=== PATIENT | female | born 1990 | race Caucasian/White ===

== ENCOUNTER 2019-07-29 07:15 | Day surgery (SDC) | payer BC, SELFPAY ==
[2019-07-28 09:05] VITALS: BMI 21.6
[2019-07-28 09:10] LABS: OR HCG Qualitative Urine Negative (Negative)
--- NOTE | 2019-07-28 09:34 | ANES.PREANES ---
Pre-Anesthetic Assessment Pre-Anesthetic Assessment: Height/Weight: Height 1.73 m Weight 64.41 kg Proposed Procedure: Operation Date: 07/29/19 08:00 Proposed Procedures p Loop Electrosurgical Excision Procedure(Not Applicable) - Alfred Sosa MD Social: Social History: No alcohol and No tobacco Airway: Submandibular: WNL Cervical ROM: WNL MP: 2 Dentition: Full Pulmonary: Pulmonary: None reported CV/HEM: CV/HEM: None reported : : None reported Hepatic: Hepatic: None reported GI: GI: None reported Metabolic: Metabolic: None reported Musc/skel: Musc/skel: None reported Neuropsych: Neuropsych: None reported Anesthetic Plan: ASA status: I Anesthesia: MAC Risk of > 500 ml blood loss (7ml/kg in children): No PFSH Anesthesia PFSH: Social History (Updated 07/28/19 @ 09:08 by Fern Nava RN) Smoking and tobacco status: never smoked Data Anesthesia Labs: Other Labs: Laboratory Results - last 48 hr 07/28/19 09:07 Urine HCG, Qual Negative Cardiac Studies: No Data to Display
[2019-07-29 07:29] VITALS: BP 127/65; PULSE 63; RESP 18; TEMP 36.7; O2SAT 100
--- NOTE | 2019-07-29 07:59 | PM.HPUD ---
H&P update H&P Update: DATE OF SURGERY/PROCEDURE: 07/29/19 DATE H&P PERFORMED: 07/28/19 H&P UPDATE INFORMATION: H&P completed within last 30 days and No changes to prior documentation PLANNED PROCEDURE: Operation Date: 07/29/19 09:05 Proposed Procedures p Loop Electrosurgical Excision Procedure(Not Applicable) - Alfred Sosa MD Full H&P Perinent History: Social History: Social History Smoking and tobacco status: never smoked Alcohol intake: current Alcohol intake frequency: holidays/special occasions only
[2019-07-29] MEDS: sodium chloride 0.9% 1,000 ML 30 ML IV (08:19)
[2019-07-29] MEDS: ketorolac 30 mg/mL INJ IVP (08:20)
--- NOTE | 2019-07-29 11:00 | PM.OP ---
Operative Report Post-Operative Note: Date of procedure: 07/29/19 Preop Diagnosis: Cervical intraepithelial neoplasia 2 Post-op diagnosis: same Procedure Done: Loop electrosurgical excisional procedure of the cervix with colposcopy Specimens removed/disposition: LEEP specimen of the cervix Surgeon: Alfred Sosa Anesthesia: MAC and other (Paracervical block) Estimated blood loss (mL): 20 IV fluids (mL): 700 Complications: None Findings: Acetowhite changes at the 12 o'clock position of the ectocervix and thin band of acetowhite changes along the transformation zone. Condition: stable Disposition: other (Home) Operative Report: Brief History: Patient is a 29-year-old white female 1, para 1-0-0-1 with an LMP of 07/07/2019 who uses the NuvaRing for control. She had had an abnormal Pap smear on 05/15/2019 showing low-grade TAMEKA with positive high risk HPV. She had a colposcopy performed on 06/03/2019 which showed TRISTIAN-2. Further treatment by LEEP was recommended. Since she did not tolerate the colposcopy well due to anxiety issues, decision was made to perform the LEEP as an outpatient procedure under anesthesia. She is presenting for this at this time. Procedure: A nonconductive speculum was placed in the vagina and acetic acid applied to the cervix. Colposcopy was performed with acetowhite changes noted at approximately the 12 o'clock position of the ectocervix. She also had a thin band of acetowhite changes along the entire transformation zone. Transformation zone was completely seen. Lugol's was applied. Paracervical block was performed with a total of 12 mL ml of 2% lidocaine with epinephrine used. Using a 2 cm loop, the entire transformation zone and nonstaining portions of the cervix were excised in a single pass. The base of the excised area and outer edges of the cervix were cauterized with ball tip cautery. Monsel solution was applied. The patient tolerated the procedure well. Sponge and needle counts were correct. DISPOSITION: Discharged home. FOLLOW-UP APPOINTMENT: Follow-up appointment scheduled for 08/18/2019 in my office. DISCHARGE MEDICATIONS: Prescriptions given for: 1. Ibuprofen 800 mg, 1 tablet 3 times a day as needed for pain, #20, 0 refills 2. Tramadol 50 mg, 1 to 2 tablets every 6 hours as needed for pain, #10, 0 refills 3. Metronidazole 500 mg, 2 tablets this evening and 2 tablets tomorrow morning. Coding Level of Care Code Acute Narcotics Agent for Nicki Blankenship
[2019-07-29 11:04] VITALS: BP 90/45; PULSE 73; RESP 18; TEMP 36.6; O2SAT 98
--- NOTE | 2019-07-29 11:09 | SUR.OPER ---
LUGOL'S [address] COOPER ON CERVIX. LOT:[id number] EXP: 05/11 MONCEL'S [address] COOPER ON CERVIX LOT: [id number] EXP: 12/18/19 ACIDIC ACID [address] COOPER ON CERVIX EXP: 10/19/19
[2019-07-29 11:44] VITALS: BP 119/92; PULSE 85; RESP 18; O2SAT 99
--- NOTE | 2019-07-29 13:45 | ANE.PACU ---
 Inpatient post-anesthesia follow up: Airway intact: Yes Vital signs: Temperature 97.9 F Pulse Rate [Left] 85 Respiratory Rate 18 Blood Pressure [Ri ght Arm] 119/92 Pulse Oximetry 99 Oxygen Delivery Me thod Room Air Oxygen Flow Rate Fraction of Inspir ed Oxygen Hydration adequate: Yes Nausea and vomiting: No Mental status: Baseline
== END 2019-07-29 12:05 | disposition home or self-care (01) ==
PROVIDERS: Family Provider Nurse Practitioner Family; PCP Nurse Practitioner Family; Visit Provider Obstetrics & Gynecology
PROC: 0UBC7ZZ Excision of Cervix, Via Natural or Artificial Opening (ICD-10-PCS; CPT 57522; principal; 2019-07-29 08:55)
DX: N87.1 Moderate cervical dysplasia (principal); F41.9 Anxiety disorder, unspecified; Z83.3 Family history of diabetes mellitus; Z82.49 Family history of ischemic heart disease and other diseases of the circulatory system; Z82.3 Family history of stroke; Z87.891 Personal history of nicotine dependence
CPT/HCPCS: 57460; 81025; 84703; 88307; 96374; J1885; J2001; J2704; J3010; J7030

== ENCOUNTER → 2020-01-28 08:25 | Outpatient (BNVA) | payer BC, SELFPAY | PROVIDERS: Family Provider Nurse Practitioner Family; PCP Nurse Practitioner Family; Visit Provider Psychiatry & Neurology Psychiatry | DX: F41.1 Generalized anxiety disorder (principal); F41.0 Panic disorder [episodic paroxysmal anxiety]; F25.1 Schizoaffective disorder, depressive type | CPT/HCPCS: 99204 ==

== ENCOUNTER → 2020-02-20 07:51 | Outpatient (BNVA) | payer BC, SELFPAY | PROVIDERS: Family Provider Nurse Practitioner Family; PCP Nurse Practitioner Family; Visit Provider Psychiatry & Neurology Psychiatry | DX: F41.0 Panic disorder [episodic paroxysmal anxiety] (principal); F41.1 Generalized anxiety disorder | CPT/HCPCS: 99213 ==

== ENCOUNTER 2020-03-21 11:10 | Emergency (ER) | payer BC, SELFPAY ==
[2020-03-21 11:50] VITALS: BP 103/65; PULSE 125; RESP 18; TEMP 39.5; O2SAT 100; BMI 22.6
--- NOTE | 2020-03-21 12:28 | CTR_ITS ---
PROCEDURE INFORMATION: Exam: CT Abdomen And Pelvis Without Contrast Exam date and time: 03/21/2020 1:31 PM Age: 29 years old Clinical indication: Abdominal pain; Right; Patient HX: C/O R flank pain w fever and urinary urgency; Additional info: Flank/abdominal pain TECHNIQUE: Imaging protocol: Computed tomography of the abdomen and pelvis without contrast. Radiation optimization: All CT scans at this facility use at least one of these dose optimization techniques: automated exposure control; mA and/or kV adjustment per patient size (includes targeted exams where dose is matched to clinical indication); or iterative reconstruction. COMPARISON: CT Abdomen/[place]vis o [id number] 12/30/2018 9:14 AM RADIATION DOSE METRICS: Total DLP (mGy-cm): 750.96 FINDINGS: Liver: The size of the liver is unchanged. No mass. Gallbladder and bile ducts: Normal. No calcified stones. No ductal dilation. Pancreas: Normal. No ductal dilation. Spleen: Normal. No splenomegaly. Adrenals: Normal. No mass. Kidneys and ureters: Normal. No hydronephrosis. Stomach and bowel: Unremarkable. No obstruction. No mucosal thickening. Appendix: The appendix is not definitely seen, but there are no secondary findings to suggest appendicitis. Intraperitoneal space: Unremarkable. No free air. No significant fluid collection. Vasculature: Unremarkable. No abdominal aortic aneurysm. Lymph nodes: Unremarkable. No enlarged lymph nodes. Bladder: Unremarkable as visualized. Reproductive: Unremarkable as visualized. Bones/joints: There is sclerosis in the right L5 pedicle as seen on series 2, image 88 which is unchanged. Soft tissues: Unremarkable. CT/CT kidney stone [id number] IMPRESSION: There are no acute concerning abnormalities. No significant change when compared with 12/30/2018. Radiation Dose CTDIVOL = (mGy): DLP = 750.96 (mGy-cm)
--- NOTE | 2020-03-21 12:33 | ED_ITS ---
HPI - Female Genitourinary General: Chief complaint: Urogenital-Female Stated complaint: POSS KIDNEY INFECTION Time Seen by Provider: 03/21/20 12:26 Source: patient Mode of arrival: ambulatory Limitations: no limitations History of Present Illness: HPI Narrative: Eva is a nice 29-year-old female who comes in complaining of right mid back pain. She states her symptoms started yesterday at work and have progressively gotten worse. She is had urinary frequency and urgency and burning when she urinates. Patient states she has had symptoms like this before caused by urinary tract infection. She denies any vaginal discharge or bleeding. Patient states she is nauseated but not thrown up. She is had a subjective fever and been chilled. She is unaware of anything that makes her symptoms better or worse. She has not tried anything at home for this up to this point. Associated symptoms: Deny abdominal pain, headache(s), nausea or syncope Date of Last Menstrual Period: 03/10/20 Review of Systems Const: Reports: fever(s), chills and body aches; Denies: fatigue, malaise or diaphoresis Eyes: Denies: change in vision, blurry vision, photophobia, eye discomfort, eye discharge or eye redness ENMT: Denies: throat pain, odynophagia, hoarseness, swelling of lips/tongue, ear or mastoid pain, ear discharge, change in hearing or nasal discharge Card: Denies: chest pain, palpitations, irregular heart rhythm, edema, lightheadedness, syncope, pre-syncope, dyspnea on exertion or orthopnea Resp: Denies: dyspnea, productive cough, non-productive cough, wheezing, hemoptysis or chest congestion GI: Denies: abdominal pain, nausea, vomiting, hematemesis, coffee ground emesis, heartburn, diarrhea, constipation, GI cramping, hematochezia or melena : Reports: dysuria, urinary frequency and urinary urgency; Denies: flank pain or hematuria Musc: Reports: back pain; Denies: neck pain, extremity pain, extremity swelling, joint pain, joint swelling, joint redness, joint warmth or joint stiffness Skin/Breast: Denies: rash, pruritus, erythema or skin tenderness Neuro: Denies: headache(s), numbness in extremities, weakness in extremities, sensory changes, lack of coordination, difficulty walking, dizziness, vertigo, c onfusion, Slurred speech present or seizure-like activity Artie/Lymph: Denies: easy bruising, easy bleeding, petechiae, purpura or enlarged lymph nodes All/Imm: Denies: urticaria, throat swelling, tongue swelling, facial swelling or acute wheezing PFSH ED PFSH: Medical History Anxiety Diagnosed in 2019 and managed by paroxetine given by her primary care provider Joseline Christine TRISTIAN II (cervical intraepithelial neoplasia II) Diagnosed in 2019 treated with LEEP performed by Dr. Sosa on 07/29/2019 with negative margins No pertinent past medical history Denies diabetes, asthma, hypertension, seizures, DVT/PE PCP: [facility] Surgical History History of loop electrical excision procedure (LEEP) (07/29/19) Dx: TRISTIAN 2. Performed [address] Dr. Alfred Sosa at [facility] in [place], [place]. Family History Father Hypertension Grandmother Heart disease Maternal and paternal Stroke maternal Breast cancer paternal Grandfather Heart disease Maternal and paternal Denies family history of Colon cancer Ovarian cancer Diabetes Uterine cancer Thyroid condition Social History Smoking and tobacco status: former smoker Quit status (tobacco): has quit using tobacco Year quit tobacco: 2016 Second hand smoke exposure: No Alcohol intake: current Current gender identity: Female Additional social history: Tobacco Use: Started smoking at age 18 and smoked about a pack per week until 09/2016 when she quit. Denies any tobacco use since then. 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 Plans to go back to school in 2019 for her masters. Female Reproductive History: Date of last menstrual period: 03/10/20 Physical Exam Const: COMMON NORMALS: no acute distress, patient oriented x3, no limitations, healthy appearing and well nourished GENERAL APPEARANCE: cooperative, well kempt and well developed HENMT: COMMON NORMALS: normocephalic, atraumatic, external ears normal, EAC's normal and Normal external nose present HEAD & SCALP: normal to inspection, normocephalic and atraumatic FACE & SINUS: normal facial exam and face symmetric NOSE: Normal external nose present and Normal nares present EXTERNAL EAR: Yes external ears normal EXTERNAL AUDITORY CANAL: EAC's normal MOUTH: Normal oral and palatal mucosa present, lip normal and tongue normal Eye: COMMON NORMALS: Equal, round and reactive pupils present and conjunctivae normal GENERAL EYE: appearance normal, both eyes and all related structures ALIGNMENT: Yes alignment normal PERIORBITAL: periorbital findings normal EYELID: eyelids normal CONJUNCTIVA: Yes conjunctivae normal SCLERA: sclerae normal PUPIL: Yes Equal, round and reactive pupils present Neck/C-Spine: COMMON NORMALS: full ROM, no lymphadenopathy, supple, no meningeal signs and no JVD GENERAL: Yes normal visual inspection and Yes trachea midline Chest: COMMONS NORMALS: normal inspection of the chest and normal palpation of entire chest wall Resp: COMMON NORMALS: normal respiratory effort, No retractions, No use of accessory muscles and clear to auscultation bilaterally EFFORT & INSPECTION: Yes able to speak in complete sentences and Yes symmetric chest movement AUSCULTATION: clear to auscultation bilaterally, no crackles, no rales, no rhonchi and no wheezes Cardio: COMMON NORMALS: no JVD, regular rate, regular rhythm, S1 normal heart sound present and S2 normal heart sound present RATE: regular rate RHYTHM: regular rhythm HEART SOUNDS: S1 normal heart sound present, S2 normal heart sound present, no click, no gallops, no murmurs, no rubs and abnormal split S2 GI: COMMON NORMALS: Soft to palpation and No hepatosplenomegaly present PALPATION: Yes Soft to palpation, No Tenderness to palpation present (GI), No Guarding due to palpation present (GI), No Rigid due to palpation, Yes No hepatosplenomegaly present, No Hernia present, No Palpable mass present and No Pulsatile mass present : BLADDER/KIDNEY EXAM: Yes CVA tenderness on the right (Severe) EXTERNAL FEMALE EXAM: No Hernia present Back/Pelvis: COMMON NORMALS: thoracic and lumbar spine normal to inspection, no thoracic nor lumbar tenderness and thoraco-lumbar ROM normal GENERAL BACK: Yes CVA tenderness Extremity: COMMON NORMALS: normal to inspection, full ROM, capillary refill normal, no joint enlargement, no clubbing, cyanosis or edema and no calf tenderness Neuro: COMMON NORMALS: patient oriented x3, CN's II-XII intact bilaterally, moves all extremities, no focal motor deficits and no sensory deficits noted MENINGEAL SIGNS: Yes no meningeal signs SPEECH: speech normal Psych: COMMON NORMALS: mental status grossly normal, Normal thought process present, cooperative, normal affect, speech normal and activity/motor behavior normal APPEARANCE: Yes well kempt SPEECH: Yes normal speech THOUGHT PROCESS: Normal thought process present Skin: COMMON NORMALS: no rashes or lesions noted, turgor normal, no jaundice, no petechiae and no mottling GENERAL SKIN EXAM: no rashes or lesions noted and turgor normal Course Vital Signs: Vital signs: Vital Signs Temperature 99.8 F H 03/21/20 14:00 Pulse Rate 98 03/21/20 13:59 Respiratory Rate 14 03/21/20 13:59 Blood Pressure 103/35 03/21/20 13:59 Pulse Oximetry 95 03/21/20 13:59 MDM - Female [facility] Narrative: Medical decision making narrative: 1634 -patient is feeling better. Fever is gone and she no longer feels nauseated. CT scan reveals no evidence of appendicitis or renal stone. The patient's urine was slightly contaminated but she is declining a repeat catheterized specimen. She has no vaginal discharge or bleeding so I believe this is very likely to represent a true urinary tract infection with pyelonephritis. Patient does not appear septic and her lactate is normal. She is not vomiting but she is nauseated. Other symptoms controlled here with medications I believe she is safe for discharge. She would like to go home. She agrees to return should her symptoms change or worsen but at this time she is ready to be discharged. Lab Data: Attestation: I reviewed the patient's lab results. Labs: Lab Results 03/21/20 03/21/20 03/21/20 Range/Units 12:54 12:54 12:54 WBC 11.2 H (4.0-10.0) 10^3/ uL RBC 4.11 (4.1-5.3) 10^6/u L Hgb 12.8 (11.5-15.3) g/dL Hct 39.2 (37.0-47.0) % MCV 95.4 (81-99) fL MCH 31.1 (28.0-34.0) pg MCHC 32.7 (30.0-36.0) g/dL RDW 11.9 L (12.1-15.1) % Plt Count 205 (130-400) 10^3/c mm MPV 11.4 H (7.4-10.4) fL Neut % (Auto) 88.7 % Lymph % (Auto) 3.3 % [place] % (Auto) 7.2 % Eos % (Auto) 0.0 % Baso % (Auto) 0.4 % Neut # (Auto) 9.92 H (1.8-7.7) 10^3/u L Lymph # (Auto) 0.4 L (0.8-4.8) 10^3/u L [place] # (Auto) 0.8 (0.2-0.9) 10^3/u L Eos # (Auto) 0.0 (0.0-0.8) 10^3/u L Baso # (Auto) 0.0 (0.0-0.1) 10^3/u L Nucleated RBC % (a uto) 0 % Nucleated RBCs # 0.0 /100WBC Sodium 133 L (136-145) mmol/L Potassium 3.8 (3.5-5.1) mmol/L Chloride 99 (98-107) mmol/L Carbon Dioxide 23 (22-29) mmol/L Anion Gap 14.8 (5-19) BUN 11 (6-20) mg/dL Creatinine 0.9 (0.5-0.9) mg/dL GFR Calculation 75.1 L (90-130) mL/min Glucose 100 (65-115) mg/dL Calculated Osmolal ity 272 L (285-295) mOsm/k g Lactic Acid 0.9 (0.5-2.2) mmol/L Calcium 9.3 (8.5-10.5) mg/dL Total Bilirubin 0.9 (0.15-1.2) mg/dL AST 19 (0-32) U/L ALT 17 (0-33) U/L Alkaline Phosphata se 55 (35-105) IU/L Total Protein 7.0 (6.6-8.7) g/dL Albumin 4.2 (3.5-5.2) g/dL Globulin 2.8 (1.3-4.6) g/dL HCG, Qual (Negative) Urine Color (Yellow) Urine Appearance (CLEAR) Urine pH (5-7) Ur Specific Gravit y (1.005-1.030) Urine Protein (Negative) Urine Glucose (UA) (Normal) Urine Ketones (Negative) Urine Blood (Negative) Urine Nitrate (Negative) Urine Bilirubin (NEGATIVE) Urine Urobilinogen (Negative) mg/dL Ur Leukocyte Symone ase (Negative) Urine RBC (0-2) /hpf Urine WBC (0-5) /hpf Ur Squamous Epith Cells (0-5) Amorphous Sediment Urine Bacteria (NONE) Urine Mucus 03/21/20 03/21/20 Range/Units 12:54 12:58 WBC (4.0-10.0) 10^3/ uL RBC (4.1-5.3) 10^6/u L Hgb (11.5-15.3) g/dL Hct (37.0-47.0) % MCV (81-99) fL MCH (28.0-34.0) pg MCHC (30.0-36.0) g/dL RDW (12.1-15.1) % Plt Count (130-400) 10^3/c mm MPV (7.4-10.4) fL Neut % (Auto) % Lymph % (Auto) % [place] % (Auto) % Eos % (Auto) % Baso % (Auto) % Neut # (Auto) (1.8-7.7) 10^3/u L Lymph # (Auto) (0.8-4.8) 10^3/u L [place] # (Auto) (0.2-0.9) 10^3/u L Eos # (Auto) (0.0-0.8) 10^3/u L Baso # (Auto) (0.0-0.1) 10^3/u L Nucleated RBC % (a uto) % Nucleated RBCs # /100WBC Sodium (136-145) mmol/L Potassium (3.5-5.1) mmol/L Chloride (98-107) mmol/L Carbon Dioxide (22-29) mmol/L Anion Gap (5-19) BUN (6-20) mg/dL Creatinine (0.5-0.9) mg/dL GFR Calculation (90-130) mL/min Glucose (65-115) mg/dL Calculated Osmolal ity (285-295) mOsm/k g Lactic Acid (0.5-2.2) mmol/L Calcium (8.5-10.5) mg/dL Total Bilirubin (0.15-1.2) mg/dL AST (0-32) U/L ALT (0-33) U/L Alkaline Phosphata se (35-105) IU/L Total Protein (6.6-8.7) g/dL Albumin (3.5-5.2) g/dL Globulin (1.3-4.6) g/dL HCG, Qual Negative (Negative) Urine Color Yellow (Yellow) Urine Appearance Hazy A (CLEAR) Urine pH 5 (5-7) Ur Specific Gravit y 1.010 (1.005-1.030) Urine Protein Neg (Negative) Urine Glucose (UA) Norm (Normal) Urine Ketones 2+ H (Negative) Urine Blood 3+ H (Negative) Urine Nitrate Negative (Negative) Urine Bilirubin Neg (NEGATIVE) Urine Urobilinogen Norm (Negative) mg/dL Ur Leukocyte Symone ase 2+ H (Negative) Urine RBC 25-40 H (0-2) /hpf Urine WBC 80-100 H (0-5) /hpf Ur Squamous Epith Cells 5-10 H (0-5) Amorphous Sediment Not Reportable Urine Bacteria 1+ H (NONE) Urine Mucus 2+ Imaging Data: CT Abd/Pel: Attestation: I personally reviewed and interpreted this imaging study as follows: Radiologist's impression: [place] [address] CT Scan Report Signed Patient: Eva Ruiz Unit #: [id number] : 1990 Age/Sex: 29 / F ADM Date: 03/21/20 Loc: ER Room/Bed: Attending Dr: Ordering Provider/Ordering MD: Elizabeth Saleem DO Date of Service: 03/21/20 Procedure(s): CT kidney stone [id number] Accession Number(s): [id number] Report Number: [id number] PROCEDURE INFORMATION: Exam: CT Abdomen And Pelvis Without Contrast Exam date and time: 03/21/2020 1:31 PM Age: 29 years old Clinical indication: Abdominal pain; Right; Patient HX: C/O R flank pain w fever and urinary urgency; Additional info: Flank/abdominal pain TECHNIQUE: Imaging protocol: Computed tomography of the abdomen and pelvis without contrast. Radiation optimization: All CT scans at this facility use at least one of these dose optimization techniques: automated exposure control; mA and/or kV adjustment per patient size (includes targeted exams where dose is matched to clinical indication); or iterative reconstruction. COMPARISON: CT Abdomen/Pelvis o [id number] 12/30/2018 9:14 AM RADIATION DOSE METRICS: Total DLP (mGy-cm): 750.96 FINDINGS: Liver: The size of the liver is unchanged. No mass. Gallbladder and bile ducts: Normal. No calcified stones. No ductal dilation. Pancreas: Normal. No ductal dilation. Spleen: Normal. No splenomegaly. Adrenals: Normal. No mass. Kidneys and ureters: Normal. No hydronephrosis. Stomach and bowel: Unremarkable. No obstruction. No mucosal thickening. Appendix: The appendix is not definitely seen, but there are no secondary findings to suggest appendicitis. Intraperitoneal space: Unremarkable. No free air. No significant fluid collection. Vasculature: Unremarkable. No abdominal aortic aneurysm. Lymph nodes: Unremarkable. No enlarged lymph nodes. Bladder: Unremarkable as visualized. Reproductive: Unremarkable as visualized. Bones/joints: There is sclerosis in the right L5 pedicle as seen on series 2, image 88 which is unchanged. Soft tissues: Unremarkable. CT/CT kidney stone [id number] IMPRESSION: There are no acute concerning abnormalities. No significant change when compared with 12/30/2018. Radiation Dose CTDIVOL = (mGy): DLP = 750.96 (mGy-cm) Dictated By: Kallie Courtney MD Signed By: Kallie Courtney MD Signed Date/Time: 03/21/201416 DD/ 16 Discharge Plan Discharge Patient Disposition: Home Clinical Impression: Pyelonephritis Condition: Stable Prescriptions: New ondansetron HCl [Zofran] 4 mg tablet 4 mg PO Q6H PRN (Reason: nausea and vomiting) Qty: 20 RF: 0 ciprofloxacin HCl [Cipro] 500 mg tablet 500 mg PO BID Qty: 20 RF: 0 No Action NuvaRing 0.12-0.015 mg/24 hr ring 1 vag ring VAGINAL .every 28 days Qty: 3 RF: 2 Hold Instructions: Resume on 08/24/19. Resume 1 month after procedure fluoxetine 20 mg capsule 20 mg PO DAILY Qty: 30 RF: 2 Multiple Vitamins Tablet 1 tab PO DAILY RF: 0 Plexus Bio Cleanse See Rx Instructions .ROUTE .COMPLEX RF: 0 Plexus Probio5 1 cap PO BEDTIME RF: 0 Discharge Orders: Discharge Order (Routine); Ordered 03/21/20 Ordered By: Elizabeth Saleem Referrals: Greta Christine NP [Primary Care Provider] - 1-3 days Discharge Diet: Advance as tolerated Discharge Activity: Increase activity as tolerated Patient Instructions: Acute Pyelonephritis (ED) Activity Restrictions/Additional Instructions: Please return to the ER immediately for any of the signs or symptoms listed on your discharge instruction sheets, worsening/changing of your symptoms, you are not getting better as quickly as expected, or for ANY other cause or concerns. Return to the ER for fever, vomiting, uncontrolled pain, or for any other cause for concern. Take Tylenol Motrin [id number] for your discomfort. Return to ER if your symptoms worsen at all. Coding Level of Care Code ED Monument Setter Helper for Nicki Fwd Exam Comprehensive
[2020-03-21] MEDS: ondansetron 2 mg/ML SDV 2 mL 4 MG IVP ×2 (12:53→15:02)
[2020-03-21] MEDS: sodium chloride 0.9% 1,000 ML 999 ML IV (12:54)
[2020-03-21] MEDS: acetaminophen 500 mg Tablet 1000 MG PO (12:55)
[2020-03-21 12:56] VITALS: BP 99/63; PULSE 113; RESP 18; O2SAT 97
[2020-03-21 13:07] LABS: Basophils % 0.4 %; Hematocrit 39.2 % (37.0-47.0); Hemoglobin 12.8 g/dL (11.5-15.3); Lymphocytes # 0.4 10^3/uL (0.8-4.8); Lymphocytes % 3.3 %; Mean Corpuscular HGB Conc 32.7 g/dL (30.0-36.0); Mean Corpuscular Hemoglobin 31.1 pg (28.0-34.0); Mean Corpuscular Volume 95.4 fL (81-99); Mean Platelet Volume 11.4 fL (7.4-10.4); Monocytes # 0.8 10^3/uL (0.2-0.9); Monocytes % 7.2 %; Neutrophils # 9.92 10^3/uL (1.8-7.7); Neutrophils % 88.7 %; Nucleated Red Blood Cells % 0 %; Platelet Count 205 10^3/cmm (130-400); Red Blood Count 4.11 10^6/uL (4.1-5.3); Red Cell Distribution Width 11.9 % (12.1-15.1); White Blood Count 11.2 10^3/uL (4.0-10.0)
[2020-03-21 13:27] LABS: Urine Appearance Hazy (CLEAR); Urine Color Yellow (Yellow); pH Urine 5 (5-7)
[2020-03-21 13:27] LABS: HCG, Serum Qual Negative (Negative)
[2020-03-21 13:28] LABS: Add Urine Microscopic? YES; Bilirubin Urine Neg (NEGATIVE); Blood Urine 3+ (Negative); Glucose Urine UA Norm (Normal); Ketones Urine 2+ (Negative); Leukocyte Esterase Urine 2+ (Negative); Nitrate Urine Negative (Negative); Protein Urine Neg (Negative); Urobilinogen Urine Norm (Negative)
[2020-03-21 13:30] LABS: RBC Urine 25-40 /hpf (0-2); WBC Urine 80-100 /hpf (0-5)
[2020-03-21 13:31] LABS: Add Urine Culture? Yes; Bacteria Urine 1+; Mucus Urine 2+
[2020-03-21 13:32] LABS: Lactic Sepsis W/Reflex 0.9 mmol/L (0.5-2.2)
[2020-03-21 13:33] LABS: Alanine Aminotransferase 17 U/L (0-33); Albumin Level 4.2 g/dL (3.5-5.2); Alkaline Phosphatase 55 IU/L (35-105); Anion Gap 14.8 (5-19); Aspartate Amino Transferase 19 U/L (0-32); Blood Urea Nitrogen 11 mg/dL (6-20); Calcium 9.3 mg/dL (8.5-10.5); Carbon Dioxide 23 mmol/L (22-29); Chloride 99 mmol/L (98-107); Globulin 2.8 g/dL (1.3-4.6); Glomerular Filtration Rate 75.1 mL/min (90-130); Glucose 100 mg/dL (65-115); Osmolality Calculated 272 mOsm/kg (285-295); Potassium 3.8 mmol/L (3.5-5.1); Sodium 133 mmol/L (136-145); Total Bilirubin 0.9 mg/dL (0.15-1.2)
[2020-03-21 13:59] VITALS: BP 103/35; PULSE 98; RESP 14; O2SAT 95
[2020-03-21] MEDS: cefTRIAXone 1,000 MG in sodium chloride 0.9% (plus) 50 ML 100 MG IV (13:59)
[2020-03-21 14:00] VITALS: TEMP 37.7
[2020-03-21] MEDS: ciprofloxacin 500 mg Tablet PO (15:02)
[2020-03-21 15:13] VITALS: BP 100/58; PULSE 91; RESP 14; O2SAT 95
== END 2020-03-21 15:15 | disposition home or self-care (01) ==
PROVIDERS: Nurse Practitioner Family; Emergency Provider Emergency Medicine; PCP Nurse Practitioner Family
DX: N12 Tubulo-interstitial nephritis, not specified as acute or chronic (principal); Z87.891 Personal history of nicotine dependence
CPT/HCPCS: 12345; 36415; 74176; 80053; 81001; 83605; 84703; 85025; 87040; 87077; 87086; 87186; 96361; 96365; 96375; 96376; 99283; J0696; J2405; J7030

== ENCOUNTER → 2020-05-10 07:52 | Outpatient (BNVA) | payer BC, SELFPAY | PROVIDERS: PCP Nurse Practitioner Family; Visit Provider Psychiatry & Neurology Psychiatry | DX: F41.0 Panic disorder [episodic paroxysmal anxiety] (principal); F41.1 Generalized anxiety disorder | CPT/HCPCS: 99213 ==

== ENCOUNTER → 2020-08-16 13:47 | Outpatient (BNVA) | payer BC, SELFPAY | PROVIDERS: PCP Family Medicine; Visit Provider Obstetrics & Gynecology | DX: Z30.9 Encounter for contraceptive management, unspecified (principal); N87.1 Moderate cervical dysplasia | CPT/HCPCS: 88175 ==

== ENCOUNTER → 2020-10-08 12:27 | Outpatient (BNVA) | payer BC, SELFPAY | PROVIDERS: PCP Family Medicine; Visit Provider Counselor Professional | DX: F41.0 Panic disorder [episodic paroxysmal anxiety] (principal); F41.1 Generalized anxiety disorder | CPT/HCPCS: 90834 ==

== ENCOUNTER → 2020-10-20 11:20 | Outpatient (BNVA) | payer SELFPAY | PROVIDERS: PCP Family Medicine; Visit Provider Psychiatry & Neurology Psychiatry | DX: F41.0 Panic disorder [episodic paroxysmal anxiety] (principal); F41.1 Generalized anxiety disorder | CPT/HCPCS: 99214 ==

== ENCOUNTER → 2020-10-21 07:46 | Outpatient (BNVA) | payer BC, SELFPAY | PROVIDERS: PCP Family Medicine; Visit Provider Counselor Professional | DX: F41.0 Panic disorder [episodic paroxysmal anxiety] (principal); F41.1 Generalized anxiety disorder | CPT/HCPCS: 90834 ==

== ENCOUNTER → 2020-11-05 13:34 | Outpatient (BNVA) | payer BC, SELFPAY | PROVIDERS: PCP Family Medicine; Visit Provider Counselor Professional | DX: F41.0 Panic disorder [episodic paroxysmal anxiety] (principal); F41.1 Generalized anxiety disorder | CPT/HCPCS: 90834 ==

== ENCOUNTER → 2020-12-06 10:11 | Outpatient (BNVA) | payer BC, SELFPAY | PROVIDERS: PCP Family Medicine; Visit Provider Psychiatry & Neurology Psychiatry | DX: F60.5 Obsessive-compulsive personality disorder (principal); F41.0 Panic disorder [episodic paroxysmal anxiety]; F41.1 Generalized anxiety disorder | CPT/HCPCS: 99214 ==

== ENCOUNTER → 2020-12-16 13:40 | Outpatient (BNVA) | payer BC, SELFPAY | PROVIDERS: PCP Family Medicine; Visit Provider Counselor Professional | DX: F60.5 Obsessive-compulsive personality disorder (principal); F41.0 Panic disorder [episodic paroxysmal anxiety]; F41.1 Generalized anxiety disorder | CPT/HCPCS: 90834 ==

== ENCOUNTER 2021-06-03 06:57 | Outpatient (CLI) | payer BC, SELFPAY ==
--- NOTE | 2021-06-03 07:18 | MM_ITS ---
WS: [id number] Right breast diagnostic digital mammogram, 06/03/2021 Clinical Data: RIGHT BREAST MASS Comparison: None. Findings: There is a marker in the lateral aspect of the right breast at site of the palpable nodule. No nodule s, masses or spiculated calcifications are seen. There are no secondary signs of carcinoma. The breas t parenchymal pattern shows heterogeneous density. MM/[place] [id number] Impression: 1. Negative right breast mammogram. 2. Right breast ultrasound. BIRADS: 4-Suspicious Finding-Biopsy Should Be Considered FOLLOW UP: Need Additional Imaging The CAD receiving dock checker was used.
--- NOTE | 2021-06-03 07:18 | US_ITS ---
WS: [id number] Right breast ultrasound, 06/03/2021 Clinical Data: N63.10 - Unspecified lump in the right breast, unspecifie... Comparison: Right breast mammogram, 06/03/2021 Findings: At the 11:00 position in the right breast at the site of the palpable nodule there is a bilobed nodul e measuring 0.96 x 1.31 x 1.75 cm. The border is smooth and well outlined. No calcifications are with in. The echotexture is uniform and dense. The ultrasound characteristics are not specific but many be nign entities could cause this appearance. It is less likely to be a malignant finding. US/US breast RT limited* [id number] Impression: 1. Right breast nodule in the 11:00 position which has a smooth border with den se echotexture. 2. Recommend right breast biopsy. BIRADS: 4-Suspicious Finding-Biopsy Should Be Considered FOLLOW UP: Biopsy Recommended
== END 2021-06-03 06:58 | disposition home or self-care (01) ==
LOC: RAD 07:02
PROVIDERS: PCP Family Medicine; Visit Provider Nurse Practitioner Women's Health
DX: N63.11 Unspecified lump in the right breast, upper outer quadrant (principal)
CPT/HCPCS: 76642; 77065

== ENCOUNTER 2021-07-01 07:42 | Outpatient (CLI) | payer BC, SELFPAY ==
--- NOTE | 2021-07-01 08:45 | US_ITS ---
WS: [id number] ULTRASOUND-GUIDED RIGHT BREAST BIOPSY HISTORY: N63.10 - Unspecified lump in the right breast, well-circumscribed. COMPARISON: 06/03/2021 Procedure, risks and complications are explained to the patient. Medications are reviewed. Consent is obtained. The mass in the RIGHT breast is localized with ultrasound. Mass localizes to the subareolar region to wards the upper outer quadrant. Skin is cleansed with ChloraPrep and anesthetized with 1% buffered li docaine. Small dermatome is made. Under sterile conditions mass is biopsied with a 14-gauge Achieve n eedle. Multiple core biopsies are performed. Material placed in formalin and sent to pathology for re view. No complications encountered. Breast tissue marker (amazingtunes ultrasound enhanced ribbon): Single. Patient left the radiology suite with no complications. Patient is instructed to return [place] [facility] with any concerns. US/[place] [id number] IMPRESSION: 1. Uncomplicated core needle biopsy RIGHT breast, subareolar (upper outer quad rant). PATHOLOGY: Fibroadenoma. No malignancy. RECOMMENDATION: No further imaging. Screening mammograms beginning at age of 40 recommended. Surgical removal of this benign RIGHT breast mass can be performe d if mass is painful.
== END 2021-07-01 07:43 | disposition home or self-care (01) ==
LOC: RAD 07:43
PROVIDERS: PCP Family Medicine; Visit Provider Nurse Practitioner Women's Health
DX: N63.11 Unspecified lump in the right breast, upper outer quadrant (principal); D24.1 Benign neoplasm of right breast
CPT/HCPCS: 19083; 88305

== ENCOUNTER → 2021-08-22 08:03 | Outpatient (BNVA) | payer BC, SELFPAY | PROVIDERS: PCP Family Medicine; Visit Provider Obstetrics & Gynecology | DX: Z12.4 Encounter for screening for malignant neoplasm of cervix (principal) | CPT/HCPCS: 88175 ==

== ENCOUNTER → 2024-07-10 12:49 | Outpatient (BNVA) | payer BC, SELFPAY | PROVIDERS: PCP Family Medicine; Visit Provider Nurse Practitioner Women's Health | DX: Z01.419 Encounter for gynecological examination (general) (routine) without abnormal findings (principal) | CPT/HCPCS: 87491; 87591; 87661 ==

== ENCOUNTER 2024-07-30 09:09 | Emergency (ER) | payer BC, SELFPAY ==
[2024-07-30 09:35] VITALS: BP 132/98; PULSE 72; RESP 17; TEMP 36.8; O2SAT 96; BMI 29.0
[2024-07-30 10:11] LABS: Basophils # 0.1 10^3/uL (0.0-0.1); Basophils % 0.6 %; Eosinophils # 0.1 10^3/uL (0.0-0.8); Eosinophils % 0.8 %; Hematocrit 41.4 % (36-47); Lymphocytes % 18.9 %; Mean Corpuscular HGB Conc 33.1 g/dL (30-55); Mean Corpuscular Hemoglobin 32.2 pg (27-33); Mean Corpuscular Volume 97.2 fl (85-98); Mean Platelet Volume 10.1 fL (7.4-10.4); Monocytes # 0.8 10^3/uL (0.2-0.9); Neutrophils # 7.46 10^3/uL (1.8-7.7); Neutrophils % 71.1 %; Nucleated Red Blood Cells % 0 %; Platelet Count 363 10^3/cmm (157-399); Red Blood Count 4.26 10^6/uL (3.85-5.65); Red Cell Distribution Width 12.9 % (12.1-15.1); White Blood Count 10.48 10^3/uL (3.29-11.43)
--- NOTE | 2024-07-30 10:14 | ED_ITS ---
HPI - Abdominal Pain 2 General: Chief Complaint: Abdominal Pain Stated Complaint: lower abd pain Time Seen by Provider: 07/30/24 10:02 History of Present Illness: 34-year-old female with right mid lower abdominal pain. She reports it awoke her from sleeping. That it started this morning. She reports that the pain pain that is from the umbilical cord and can wrap around to the back around the hip flank area. She has some nausea this morning. She reports that pain is more just a dull ache at this time when she is not nauseated. Associated Symptoms: Reports nausea; Denies chills, constipation, diarrhea, fever(s) and vomiting Related Data Home Medications Medication Instructions Recorded Confirmed multivitamin (Multiple Vitamins 1 tab PO DAILY 03/21/20 07/30/24 tablet) Previous Rx's Medication Instructions Recorded hydroxyzine HCl 25 mg tablet 25 mg PO DAILY PRN anxiety and 10/08/23 panic #30 tabs fluoxetine 20 mg capsule (Prozac) 20 mg PO DAILY #30 caps 12/04/23 fluoxetine 40 mg capsule (Prozac) 40 mg PO DAILY #30 caps 12/04/23 Allergies Allergy/AdvReac Type Severity Reaction Status Date / Time No Known Allergies Allergy Verified 07/10/24 08:48 Review of Systems 2 Const: Denies: fever(s) or chills Card: Denies: chest pain or palpitations Resp: Denies: dyspnea or productive cough GI: Reports: abdominal pain and nausea; Denies: vomiting, diarrhea or constipation : Denies: flank pain or difficulty voiding Musc: Reports: back pain Skin/Breast: Denies: rash or pruritus Neuro: Denies: headache(s) or numbness in extremities Psych: Denies: anxiety or depression PFSH ED 2 PFSH: Medical History Psychiatric care No pertinent past medical history Denies diabetes, asthma, hypertension, seizures, DVT/PE PCP: none Anxiety Diagnosed in 2018 and is on medication managed by Dr. Matos at [facility] [place]. Has been on Prozac since January 2021 TRISTIAN II (cervical intraepithelial neoplasia II) Diagnosed in 2019 treated with LEEP performed by Dr. Sosa on 07/29/2019 with negative margins Surgical History History of loop electrical excision procedure (LEEP) (07/29/19) Dx: TRISTIAN 2. Performed [address] Dr. Alfred Sosa at [facility] in [place], [place]. Family History Father Hypertension Grandmother Heart disease Maternal and paternal Stroke maternal Breast cancer paternal, diagnosed in her 70s Diabetes maternal Grandfather Heart disease Maternal and paternal Diabetes maternal Denies family history of Colon cancer Ovarian cancer Uterine cancer Thyroid disease Social History Smoking and tobacco/nicotine status: former use of tobacco/nicotine Quit status (tobacco/nicotine): has quit using Year quit tobacco: 2017 Second hand smoke exposure: No Alcohol intake: current Substance/Drug Use: never Physical Exam 2 Const: COMMON NORMALS: no acute distress, average body habitus and patient oriented x3 HENMT: COMMON NORMALS: normocephalic and hearing grossly normal bilaterally HEAD & SCALP: normocephalic Resp: COMMON NORMALS: normal respiratory effort, No retractions and No use of accessory muscles Cardio: COMMON NORMALS: regular rate and regular rhythm RATE: regular rate RHYTHM: regular rhythm GI: INSPECTION: Yes normal to inspection PALPATION: Yes Tenderness to palpation present (GI) Details: RLQ (Mild mid right quadrant) : BLADDER/KIDNEY EXAM: Yes CVA tenderness on the right (Very minimal) Back/Pelvis: GENERAL BACK: Yes CVA tenderness Extremity: COMMON NORMALS: normal to inspection and capillary refill normal Neuro: COMMON NORMALS: patient oriented x3, moves all extremities, no focal motor deficits and no sensory deficits noted Psych: COMMON NORMALS: mental status grossly normal and cooperative Skin: COMMON NORMALS: no wounds and turgor normal GENERAL SKIN EXAM: turgor normal Course 2 Vital Signs: Vital signs: Vital Signs Temperature 98.3 F 07/30/24 09:35 Pulse Rate 75 07/30/24 10:58 Respiratory Rate 17 07/30/24 09:35 Blood Pressure 117/68 07/30/24 10:58 Pulse Oximetry 95 07/30/24 10:58 Oxygen Delivery Me thod Room Air 07/30/24 09:35 MDM - Abdominal Pain Medical Decision Making Patient's diagnostic studies were ordered reviewed and interpreted by me. Patient's labs show negative white count, negative CRP and physical exam is not consistent with appendicitis so very unlikely with all that being negative. Patient's ALT AST and lipase are within normal range and symptoms are lower than gallbladder so this is also very unlikely. Patient has no blood in her urine and no signs of a UTI. Discussed findings with patient. We discussed watchful waiting versus further evaluation including advanced imaging. At this time she felt that she would be okay going home. She will return to the ER if symptoms worsen or change. I agree that this is likely appropriate as there is no indications for any significant abnormality on labs and physical exam was fairly benign. Patient is stable and discharged home Lab Data 07/30/24 10:04 07/30/24 10:04 Labs/Radiology: Laboratory Results WBC 10.48 10^3/uL (3.29-11.43) 07/30/24 10:04 RBC 4.26 10^6/uL (3.85-5.65) 07/30/24 10:04 Hgb 13.70 g/dL (11.27-16.99) 07/30/24 10:04 Hct 41.4 % (36-47) 07/30/24 10:04 MCV 97.2 fl (85-98) 07/30/24 10:04 MCH 32.2 pg (27-33) 07/30/24 10:04 MCHC 33.1 g/dL (30-55) 07/30/24 10:04 RDW 12.9 % (12.1-15.1) 07/30/24 10:04 Plt Count 363 10^3/cmm (157-399) 07/30/24 10:04 MPV 10.1 fL (7.4-10.4) 07/30/24 10:04 Neut % (Auto) 71.1 % 07/30/24 10:04 Lymph % (Auto) 18.9 % 07/30/24 10:04 [place] % (Auto) 8.0 % 07/30/24 10:04 Eos % (Auto) 0.8 % 07/30/24 10:04 Baso % (Auto) 0.6 % 07/30/24 10:04 Neut # (Auto) 7.46 10^3/uL (1.8-7.7) 07/30/24 10:04 Lymph # (Auto) 2.0 10^3/uL (0.8-4.8) 07/30/24 10:04 [place] # (Auto) 0.8 10^3/uL (0.2-0.9) 07/30/24 10:04 Eos # (Auto) 0.1 10^3/uL (0.0-0.8) 07/30/24 10:04 Baso # (Auto) 0.1 10^3/uL (0.0-0.1) 07/30/24 10:04 Nucleated RBC % (auto) 0 % 07/30/24 10:04 Nucleated RBCs # 0.0 /100WBC 07/30/24 10:04 Sodium 146 mmol/L (136-145) H 07/30/24 10:04 Potassium 5.5 mmol/L (3.5-5.1) H 07/30/24 10:04 Chloride 104 mmol/L (98-107) 07/30/24 10:04 Carbon Dioxide 27 mmol/L (22-29) 07/30/24 10:04 Anion Gap 20.5 (5-19) H 07/30/24 10:04 BUN 8 mg/dL (6-20) 07/30/24 10:04 Creatinine 0.7 mg/dL (0.5-0.9) 07/30/24 10:04 GFR Calculation 97.0 mL/min (90-130) 07/30/24 10:04 Glucose 108 mg/dL (65-115) 07/30/24 10:04 Calculated Osmolality 301 mOsm/kg (285-295) H 07/30/24 10:04 Calcium 9.5 mg/dL (8.5-10.5) 07/30/24 10:04 Total Bilirubin 0.4 mg/dL (0.15-1.2) 07/30/24 10:04 AST 27 U/L (0-32) 07/30/24 10:04 ALT 16 U/L (0-33) 07/30/24 10:04 Alkaline Phosphatase 88 U/L (35-105) 07/30/24 10:04 C-Reactive Protein 4.4 mg/L (0.0-4.9) 07/30/24 10:04 Total Protein 7.3 g/dL (6.6-8.7) 07/30/24 10:04 Albumin 4.6 g/dL (3.5-5.2) 07/30/24 10:04 Globulin 2.7 g/dL (1.3-4.6) 07/30/24 10:04 Lipase 25 U/L (13-60) 07/30/24 10:04 HCG, Qual Negative (Negative) 07/30/24 10:04 Urine Color Yellow (Yellow) 07/30/24 11:41 Urine Appearance Clear (CLEAR) 07/30/24 11:41 Urine pH 7.0 (5-7) 07/30/24 11:41 Ur Specific [place] 1.013 (1.005-1.030) 07/30/24 11:41 Urine Protein Negative (Negative) 07/30/24 11:41 Urine Glucose (UA) Negative (Normal) 07/30/24 11:41 Urine Ketones Negative (Negative) 07/30/24 11:41 Urine Blood Negative (Negative) 07/30/24 11:41 Urine Nitrate Negative (Negative) 07/30/24 11:41 Urine Bilirubin Negative (Negative) 07/30/24 11:41 Urine Urobilinogen 1.0 mg/dL (Negative) 07/30/24 11:41 Ur Leukocyte Esterase Negative (Negative) 07/30/24 11:41 Urine RBC 0-2 /hpf (0-2) 07/30/24 11:41 Urine WBC 0-5 /hpf (0-5) 07/30/24 11:41 Ur Squamous Epith Cells 0-5 /hpf (0-5) 07/30/24 11:41 Amorphous Sediment Not Reportable 07/30/24 11:41 Urine Bacteria None seen /hpf (NONE) 07/30/24 11:41 Hyaline Casts 0-4 /lpf H 07/30/24 11:41 No radiology studies performed this visit Discharge Plan Discharge Patient Disposition: Home Clinical Impression: Abdominal pain Qualifiers: Abdominal location: right lower quadrant Qualified Code(s): R10.31 - Right lower quadrant pain Condition: Stable Prescriptions: No Action hydroxyzine HCl 25 mg tablet 25 mg PO DAILY PRN (Reason: anxiety and panic) Qty: 30 1RF fluoxetine [Prozac] 20 mg capsule 20 mg PO DAILY Qty: 30 2RF fluoxetine [Prozac] 40 mg capsule 40 mg PO DAILY Qty: 30 2RF multivitamin [Multiple Vitamins] Tablet 1 tab PO DAILY Discharge Orders: Discharge ED (Routine); Ordered 07/30/24 Ordered By: Humberto Chowdhury Referrals: Abdiaziz Cosby MD [Primary Care Provider] - Discharge Diet: Advance as tolerated Discharge Activity: Increase activity as tolerated Patient Instructions: Abdominal Pain (ED), Opioid Safety, Pain Management Activity Restrictions/Additional Instructions: With your primary care provider if symptoms continue to return to the ER with any concerns or more localization of pain in the right lower quadrant or significant increase in your pain. Stand Alone Forms: Work/School Release Coding Level of Care Code ED Software Specialist for Nicki Blankenship
[2024-07-30 10:28] LABS: Alanine Aminotransferase 16 U/L (0-33); Albumin Level 4.6 g/dL (3.5-5.2); Alkaline Phosphatase 88 U/L (35-105); Anion Gap 20.5 (5-19); Aspartate Amino Transferase 27 U/L (0-32); Blood Urea Nitrogen 8 mg/dL (6-20); Calcium 9.5 mg/dL (8.5-10.5); Carbon Dioxide 27 mmol/L (22-29); Chloride 104 mmol/L (98-107); Creatinine Clr Calc Pharmacy 124.2921; Globulin 2.7 g/dL (1.3-4.6); Glucose 108 mg/dL (65-115); Lipase 25 U/L (13-60); Osmolality Calculated 301 mOsm/kg (285-295); Potassium 5.5 mmol/L (3.5-5.1); Sodium 146 mmol/L (136-145); Total Bilirubin 0.4 mg/dL (0.15-1.2); Total Protein 7.3 g/dL (6.6-8.7)
[2024-07-30 10:39] LABS: C Reactive Protein 4.4 mg/L (0.0-4.9)
[2024-07-30 10:40] LABS: HCG, Serum Qual Negative (Negative)
[2024-07-30 10:58] VITALS: BP 117/68; PULSE 75; O2SAT 95
[2024-07-30 11:47] LABS: Bilirubin Urine Negative (Negative); Blood Urine Negative (Negative); Glucose Urine UA Negative (Normal); Ketones Urine Negative (Negative); Leukocyte Esterase Urine Negative (Negative); Nitrate Urine Negative (Negative); Protein Urine Negative (Negative); Specific Gravity, Urine 1.013 (1.005-1.030); Urine Appearance Clear (CLEAR); Urine Color Yellow (Yellow)
[2024-07-30 11:52] LABS: Add Urine Microscopic? YES; Bacteria Urine None Seen /hpf; Hyaline Casts Urine 0-4 /lpf; RBC Urine 0-2 /hpf (0-2); Squamous Epithelial Cell Urine 0-5 /hpf (0-5); WBC Urine 0-5 /hpf (0-5)
[2024-07-30 11:58] LABS: Add Urine Culture? No
[2024-07-30 12:00] VITALS: BP 106/71; PULSE 106; O2SAT 97
[2024-07-30 12:50] VITALS: BP 106/71; PULSE 70; O2SAT 100
== END 2024-07-30 12:40 | disposition home or self-care (01) ==
PROVIDERS: Emergency Medicine; Emergency Provider Student in an Organized Health Care Education/Training Program; PCP Family Medicine
DX: R10.31 Right lower quadrant pain (principal); Z87.891 Personal history of nicotine dependence
CPT/HCPCS: 80053; 81001; 83690; 84703; 85025; 86140; 99283

== ENCOUNTER → 2025-02-02 14:06 | Outpatient (BNVA) | payer OTHER, SELFPAY | PROVIDERS: PCP Family Medicine; Visit Provider Emergency Medicine | DX: M25.461 Effusion, right knee (principal) | CPT/HCPCS: 73562 ==